=== PATIENT | female | born 1985 | race Two or more races ===

== ENCOUNTER 2024-11-21 08:20 | Inpatient (IN) | payer MEDICAID, OTHER ==
[~2024-11-21] VITALS: Ht 162.6 cm; Wt 80.6 kg
[2024-11-21] MEDS: SODIUM CHLORIDE 0.9% 1,000 ML IV ONE (08:45)
[2024-11-21 09:12] LABS: Hemoglobin 7.7 g/dL (12.2-16.2); Nucleated Red Blood Cells % 0.1 %
[2024-11-21 09:14] LABS: Hematocrit 25.5 % (36.0-46.0); Mean Corpuscular Hemoglobin 19.2 pg (28.0-32.0); Mean Corpuscular Volume 63.5 fL (80.0-100.0)
[2024-11-21 09:23] LABS: Albumin 4.5 g/dL (3.2-4.8); Anion Gap 9 (5-15); BUN/Creatinine Ratio 9.4 (10.0-20.0); Bilirubin, Total 0.6 mg/dL (0.2-1.0); Carbon Dioxide 28 mmol/L (20-31); Chloride 106 mmol/L (98-107); Sodium 143 mmol/L (136-145); Total Protein 7.1 g/dL (5.7-8.2)
[2024-11-21 09:24] LABS: Alanine Aminotransferase 75 U/L (7-40); Alkaline Phosphatase 272 U/L (46-116); Blood Urea Nitrogen 6 mg/dL (9-23); Calcium 8.6 mg/dL (8.7-10.4); Glucose 131 mg/dL (74-106); Lipase 80 U/L (12-53); Potassium 3.3 mmol/L (3.5-5.1)
--- NOTE | 2024-11-21 09:32 | ED.PDOC ---
GI ASSESSMENT HPI Comments . Sona Diallo is a 39-year-old female, with past medical history of DM2, hypertension, CVA (2022). The patient came to the ED with chief complain of 3 days of diarrhea, >#6 per day, liquid, small amount, no foul odor, blood or mucus; associated with abdominal pain, 6/10, localized in epigastric area, cramp-like, no irradiates, also nausea and vomit # 3 of gastric content, no blood. The patient reports her son has similar symptoms at home. Today, the watery diarrhea and vomit worsen, this prompted her visit to the ED. The patient denies blood in stools, fever, chills, eating food out of regular diet, recent travels or other. Attestation note: Dr. Greene: I was the supervising attending for this ED encounter. Please see the resident's notes. I was available for questions and consultations. MDM: MDM: patient presented with the above HPI. GI symptoms/abdominal pain/nausea and vomiting diarrhea------workup was initiated. patient was found with the above mentioned diagnosis. the following medications were ordered: please refer to order lists of meds and tests obtained by myself Dr. Greene. Patient ED course and VS have been stabilized. Patient has been reassessed in the ED and remained in a stable condition. . Patient has been observed in the ED adequate length of time to insure improvem ent/stability. Escalation of care considered: Consideration of escalation to observation or admission Patient was given GI cocktail, Zofran, fluids, The medicine team admitted the patient. Patient decided to leave against medical advice. All the reports of any imaging studies that were ordered by myself were reviewed by myself. Chief Complaint: Diarrhea Time Seen by MD: 08:27 Reviewed Notes: Nurses Notes, Medications, Allergies Allergies: Coded Allergies: NO KNOWN ALLERGIES (Unverified , 11/21/24) Home Meds Reported Medications Ferrous Sulfate (FERROUS SULFATE) 324 Mg Tab, 1 TAB PO DAILY 11/21/24 Cholecalciferol (VITAMIN D3) 5,000 Unit Cap, 1 CAP PO DAILY 11/21/24 Levetiracetam (Levetiracetam) 750 Mg Tab, 1 TAB PO BID 11/21/24 Losartan Potassium (Losartan Potassium) 25 Mg Tab, 1 TAB PO DAILY 11/21/24 Information Source: Patient Mode of Arrival: Ambulatory Timing: Days Duration: Since onset Quality: Cramping Vomitus: Food Particles Stool: Watery Severity: Mild Recent: Contact Exposure (Her son has similar symptoms at home. ) Pain Location: Diffuse Associated sign and symptoms: Nausea, Vomiting Past Medical History PAST MEDICAL HISTORY: DM, HTN Constitutional: denies: chills, diaphoresis, fatigue, fever, malaise, sweats, weakness, others EENTM: denies: blurred vision, double vision, ear bleeding, ear discharge, ear drainage, ear pain, ear ringing, eye pain, eye redness, hearing loss, mouth pa in, mouth swelling, nasal discharge, nose bleeding, nose congestion, nose pain, photophobia, tearing, throat pain, throat swelling, voice changes, others Respiratory: denies: cough, hemoptysis, orthopnea, SOB at rest, shortness of breath, SOB with excertion, stridor, wheezing, others Cardiovascular: denies: chest pain, dizzy spells, diaphoresis, Dyspnea on exertion, edema, irregular heart beat, left arm pain, lightheadedness, palpitations, PND, syncope, others Gastrointestinal: reports: abdominal pain, diarrhea, nausea, vomiting; denies: abdomen distended, blood streaked bowels, constipated, dysphagia, difficulty swallowing, hematemesis, melena, poor appetite, poor fluid intake, rectal bleeding, rectal pain, others Genitourinary: denies: abnormal vagina bleeding, burning, dyspareunia, dysuria, flank pain, frequency, hematuria, incontinence, pain, , vagina discharge, urgency, others Neurological: denies: dizziness, fainting, headache, left sided numbness, left sided weakness, numbness, paresthesia, pre-existing deficit, right sided numbness, right sided weakness, seizure, speech problems, tingling, tremors, weakness, others Musculoskeletal: denies: back pain, gout, joint pain, joint swelling, muscle pain, muscle stiffness, neck pain, others Integumetry: denies: bruises, change in color, change in hair/nails, dryness, laceration, lesions, lumps, rash, wounds, others Allergic/Immunocompromised: denies: Difficulty Healing, Frequent Infections, Hives, Itching, others Hematologic/Lymphatic: denies: anemia, blood clots, easy bleeding, easy bruising, swollen glands, others Endocrine: denies: excessive hunger, excessive sweating, excessive thirst, excessive urination, flushing, intolerance to cold, intolerance to heat, unexplained weight gain, unexplained weight loss, others Psychiatric: denies: anxiety, bipolar disorder, depression, hopeless, panic disorder, schizophrenia, sleepless, suicidal, others Physical Exam General Appearance: No Apparent Distress, Normal HEENT: Normal ENT Inspection, Pharynx Normal, TMs Normal Neck: Full Range of Motion, Non-Tender, Normal, Normal Inspection Respiratory: Chest Non-Tender, Lungs Clear, No Accessory Muscle Use, No Respiratory Distress, Normal Breath Sounds Cardiovascular: No Edema, No JVD, No Murmur, No Gallop, Normal Peripheral Pulses, Regular Rate/Rhythm Breast Exam: Deferred Gastrointestinal: Epigastric, No Organomegaly, Soft, Tenderness (epigastric tenderness to deep palpation), Other (bowel sounds present and active. ) Genitalia: Deferred Pelvic: Deferred Rectal: Deferred Extremities: No calf tenderness, Normal capillary refill, Normal inspection, Normal range of motion, Non-tender, No pedal edema Musculoskeletal : Apperance: Normal Neurologic: Alert, casey saw operator II-XII nml as Tested, No Motor Deficits, Normal Affect, Normal Mood, No Sensory Deficits Cerebellar Function: Normal Reflexes: Normal Skin: Dry, Normal Color, Warm Lymphatic: No Adenopathy Was a procedure done? Was a procedure done?: No GI differential Dx Differential Diagnosis: Cholecystitis, Gastritis/PUD, Gastroenteritis, Inflammatory BD, Ischemic Bowel, Pancreatitis, Dehydration, Food Poisoning, , Bacterial, Parasitic, Viral, Ischemic Bowel, Other (DDX include Diverticulitis, colitis, gastroenteritis, acute abdomen, SBO, enteritis, constipation, volvulus, appendicitis, Gallbladder disease, choledocolithiasis, ascending cholangitis, pancreatitis, intraAbdominal mass/neoplasm, hepatitis, UTI, pylonephritis, kidney stone, aneurysm, dissection, Inflammatory bowel disease, gastroparesis, ischemic bowel,,,,,,ovarian torsion, ovarian cyst/mass, tubo-ovarian abscess, , ectopic , PID, STD.) X-Ray, Labs, Meds, VS Vital Signs Date Time Temp Pulse Resp B/P (MAP) Pulse Ox O2 Delivery O2 Flow Rate FiO2 11/21/24 12:24 97.8 57 16 140/83 (102) 100 97.8 11/21/24 09:52 97.8 62 16 151/85 (107) 100 97.8 11/21/24 08:21 98.3 60 18 150/97 100 98.3 Lab Test 11/21/24 14:06 11/21/24 09:00 11/21/24 08:53 Range/Units Hemoglobin 7.7 L 7.7 L 12.2-16.2 g/dL Hematocrit 26.1 L 25.5 L 36.0-46.0 % Reticulocyte Count (auto) 1.14 0.5-1.5 % Urine Color Yellow Yellow Urine Clarity Turbid H Clear Urine pH 6.0 5.0-9.0 Urine Specific [place] 1.021 1.001-1.035 Urine Protein Trace H Negative Urine Ketones Negative Negative Urine Blood Negative Negative /uL Urine Nitrite Negative Negative Urine Bilirubin Negative Negative Urine Urobilinogen 4 H Negative mg/dL Urine Leukocyte Esterase 2+ Negative /uL Urine RBC 2 0 - 4 /hpf Urine Microscopic WBC 6 H 0-5 /HPF Urine Squamous Epithelial Cells Few <5 /hpf Urine Bacteria None seen None Seen /hpf Urine Mucus Few None Seen Urine Glucose Normal Normal mg/dL Urine Test Negative Negative White Blood Count 4.3 L 4.4-10.8 10^3/uL Red Blood Count 4.01 4.0-5.20 10^6/uL Mean Corpuscular Volume 63.5 L 80.0-100.0 fL Mean Corpuscular Hemoglobin 19.2 L 28.0-32.0 pg Mean Corpuscular Hemoglobin Concent 30.3 L 32.0-36.0 g/dL Red Cell Distribution Width 16.9 H 11.8-14.3 % Platelet Count 236 140-450 10^3/uL Mean Platelet Volume 9.4 6.9-10.8 fL Neutrophils (%) (Auto) 59.2 37.0-80.0 % Lymphocytes (%) (Auto) 24.9 10.0-50.0 % Monocytes (%) (Auto) 13.9 H 0.0-12.0 % Eosinophils (%) (Auto) 1.4 0.0-7.0 % Basophils (%) (Auto) 0.6 0.0-2.0 % Neutrophils # (Auto) 2.5 1.6-8.6 10 ^3/uL Lymphocytes # (Auto) 1.1 0.4-5.4 10 ^3/uL Monocytes # (Auto) 0.6 0-1.3 10 ^3/uL Eosinophils # (Auto) 0.1 0-0.8 10 ^3/uL Basophils # (Auto) 0 0-0.2 10 ^3/uL Nucleated Red Blood Cells 0.1 % Platelet Estimate Adequate Hypochromasia (manual) Marked Microcytosis Marked Sodium Level 143 136-145 mmol/L Potassium Level 3.3 L 3.5-5.1 mmol/L Chloride Level 106 98-107 mmol/L Carbon Dioxide Level 28 20-31 mmol/L Anion Gap 9 5-15 Blood Urea Nitrogen 6 L 9-23 mg/dL Creatinine 0.64 0.550-1.02 mg/dL Glomerular Filtration Rate Calc 115 >90 mL/min BUN/Creatinine Ratio 9.4 L 10.0-20.0 Serum Glucose 131 H 74-106 mg/dL Hemoglobin A1c 6.2 H <5.7 % A1C Lactic Acid Level 0.9 0.4-2.0 mmol/L Calcium Level 8.6 L 8.7-10.4 mg/dL Iron Level 18 L 50-170 ug/dL Total Iron Binding Capacity 419 250-425 ug/dL Percent Iron Saturation 4.3 L 15-50 % Total Bilirubin 0.6 0.2-1.0 mg/dL Aspartate Amino Transferase (AST) 117 H 13-40 U/L Alanine Aminotransferase (ALT) 75 H 7-40 U/L Alkaline Phosphatase 272 H 46-116 U/L Troponin I High Sensitivity 3 L </=34 ng/L Total Protein 7.1 5.7-8.2 g/dL Albumin 4.5 3.2-4.8 g/dL Lipase 80 H 12-53 U/L Vitamin D 25-Hydroxy 35.0 30.0-100 ng/mL Folic Acid 24.82 >5.38 ng/mL Current Medications Medications (Trade) Dose Ordered Sig/Slim Route Start Time Stop Time Status Last Admin Sodium Chloride 1,000 ml @ 1,000 mls/hr Q1H ONCE IV 11/21/24 08:45 11/21/24 09:44 DC 11/21/24 08:45 Ondansetron HCl (Zofran) 8 mg ONCE ONCE IV 11/21/24 08:45 11/21/24 08:46 DC 11/21/24 09:46 Sucralfate (Carafate Tab) 1 gm ONCE ONCE PO 11/21/24 09:00 11/21/24 09:23 DC 11/21/24 09:46 Pantoprazole Sodium (Protonix Tablet) 40 mg ONCE ONCE PO 11/21/24 09:00 11/21/24 09:23 DC 11/21/24 09:46 Lidocaine HCl (Xylocaine 2% Viscous) 10 ml ONCE ONCE PO 11/21/24 09:00 11/21/24 09:23 DC 11/21/24 09:46 Ceftriaxone Sodium 50 ml @ 100 mls/hr ONCE ONCE IV 11/21/24 12:15 11/21/24 12:44 DC 11/21/24 12:26 [place] [id number] Ph: [phone] DIAGNOSTIC IMAGING Diagnostic Imaging Report : [id number] Signed PATIENT: SONA DIALLOACCT: [id number] UNIT: [id number] : 1985 LOC: ER ROOM / BED: / AGE / SEX: 39 / F ADM STATUS: REG ER SERVICE 1208 ORDERING PHYSICIAN: JASMEET LOWE RESIDENT PROCEDURE(s): ABDL - ABDOMEN LIMITED REASON: Abdominal pain, RUQ ORDER NUMBER(s): [id number], ACCESSION NUMBER(s): [id number] Procedure: US ABDOMEN LIMITED Study Date and Requested Time: 11/21/2024 12:35 PM History: Abdominal pain, RUQ Comparison: None Technique: Multiple high resolution montilla-scale images obtained of the right upper quadrant of the abdomen with color Doppler for evaluation of blood flow and vascularity as indicated. Findings: Liver normal in size, measuring 13.8 cm in length, with homogenous echotexture and normal contours. No evidence of focal hepatic lesions, intrahepatic or extrahepatic ductal dilatation. Common bile duct measures 0.9 cm in diameter. Cholelithiasis with mild gallbladder wall thickening of the fundus up to 0.5 cm. No gallbladder polyps or sludge. No pericholecystic free fluid. Negative sonographic Bravo's sign. Pancreas is obscured by bowel gas. Right kidney measures 9.7 cm in length, with normal contours, echotexture, and cortical thickness. No evidence of hydronephrosis, calculi, cystic or solid renal lesions. Partially visualized inferior vena cava unremarkable. Impression: Cholelithiasis with Nonspecific gallbladder wall thickening over the fundus. No pericholecystic free fluid. Negative sonographic bravo's sign. Findings are not definitive for acute cholecystitis. If there is concern for acute cholecystitis, hepatobiliary scan may be considered for further evaluation. Gallbladder fundal wall thickening may be from adenomyomatosis with other etiologies not excluded. Dilatation of the common bile duct up to 0.9 cm. MRCP should be considered for further evaluation. ATED BY: ALAINA SOTO DO DICTATED DATE/TIME: 11/21/24 1301 SIGNED BY: ALAINA SOTO DO SIGNED DATE/TIME: 11/21/24 1301 CC: [place] [id number] Ph: [phone] DIAGNOSTIC IMAGING Diagnostic Imaging Report : [id number] Signed PATIENT: SONA DIALLOACCT: [id number] UNIT: [id number] : 1985 LOC: ER ROOM / BED: / AGE / SEX: 39 / F ADM STATUS: REG ER SERVICE 0952 ORDERING PHYSICIAN: AARON GREENE DO PROCEDURE(s): ABPL - CT AB PEL WO CON-NO ORAL OR IV REASON: abd pain n/v/d ORDER NUMBER(s): [id number], ACCESSION NUMBER(s): [id number] CLINICAL INFORMATION: Abdominal pain. Nausea, vomiting, diarrhea. TECHNIQUE: Axial CT images of the abdomen and pelvis were obtained without IV contrast. Coronal and sagittal reformatted images were obtained, reviewed, and stored. Evaluation of the parenchymal organs is limited without IV contrast. Evaluation of the bowel and mesentery is limited without oral contrast. All CT scans at this medical facility are performed using dose modulation techniques as appropriate to a performed exam including the following: Automated exposure c ontrol was utilized; adjustment of the MA and/or KV according to patient size; and use of iterative reconstruction technique. CTDIvol = 20.28 mGy DLP = 1126.64 mGy-cm COMPARISON: None FINDINGS: Examination is limited due to motion artifact and beam hardening artifact from the patient being scanned with arms at sides. Lung bases: Atelectasis in the lung bases. Liver: Grossly unremarkable given the limitations of the exam. Biliary: There is calcification of the wall of the gallbladder near the fundus. Gallbladder wall appears thickened. Common bile duct measures 1 cm in diameter, mildly dilated. Spleen: Unremarkable. Pancreas: Grossly unremarkable in its noncontrast enhanced appearance. Adrenal glands: Unremarkable. No mass. Kidneys: No hydronephrosis. No renal or ureteral calculi. Aorta/Vascular: No aneurysm or significant calcification. Lymph nodes: No lymphadenopathy visualized given the limitations of the examination. Bowel/mesentery: Nonspecific nondilated fluid-filled small bowel loops. No small bowel obstruction. Appendix is not visualized. Pelvic organs: Grossly unremarkable. Bladder: Mild circumferential thickening of the bladder wall. Abdominal wall: No mass or hernia. Bones: No evidence of acute fracture. Sclerotic lesions in the right posterior iliac bone and left sacral ala, possibly bone islands. IMPRESSION: 1. Limited examination for the reasons described above. 2. Wall thickening and calcification of the gallbladder wall near the fundus. Recommend ultrasound to further characterize. 3. Mild dilation of the common bile duct. Correlate with clinical findings. If clinically indicated, MRCP could be obtained. 4. Circumferential thickening of the bladder wall is nonspecific. Correlate clinically to exclude cystitis. 5. Nonspecific nondilated fluid-filled small bowel loops. Findings may be seen with ileus or enteritis in the appropriate clinical setting. No small bowel obstruction. ATED BY: ISAC CHEN DO DICTATED DATE/TIME: 11/21/241111 SIGNED BY: ISAC CHEN DO SIGNED DATE/TIME: 11/21/241111 CC: X-Ray, Labs, Meds, VS Comment 9:30 The patient has been re-evaluated. VS are stable CBC: WBC 4.3x10e3/uL Hb:7.7mg/dl CMP: K: 3.3, AST: 117, ALT: 75, Lipase 80, Lactic acid: 0.9 CT abd/Pelv 1. Limited examination for the reasons described above. 2. Wall thickening and calcification of the gallbladder wall near the fundus. Recommend ultrasound to further characterize. 3. Mild dilation of the common bile duct. Correlate with clinical findings. If clinically indicated, MRCP could be obtained. 4. Circumferential thickening of the bladder wall is nonspecific. Correlate clinically to exclude cystitis. 5. Nonspecific nondilated fluid-filled small bowel loops. Findings may be seen with ileus or enteritis in the appropriate clinical setting. No small bowel obstruction. 12:30 Abdomen US was recommended: The patient reports feeling better. US Abd/eplv reports: Cholelithiasis with Nonspecific gallbladder wall thickening over the fundus. No pericholecystic free fluid. Negative sonographic bravo's sign. Findings are not definitive for acute cholecystitis. If there is concern for acute cholecystitis, hepatobiliary scan may be considered for further evaluation. Gallbladder fundal wall thickening may be from adenomyo matosis with other etiologies not excluded. The patient will be admitted for further assessment and management. 14:58 The patient reports feeling better and wants to go AMA. Patient was advised about her condition and the consequences of leaving AMA, the patient agrees to understood but still wants to go AMA. Recommendation were given on warning signs and when to return to the nearest ER. Dr. Greene has been informed. Time of 1ST Reevaluation: 09:30 Reevaluation 1ST: Unchanged Time of 2ND Reevaluation: 12:30 Reevaluation 2ND: Improved Time of 3RD Reevaluation: 14:58 Reevaluation 3RD: Improved Patient Education/Counseling: Diagnosis, Treatment, Prognosis, Need For Follow Up Family Education/Counseling: No Family Present SEPSIS Sepsis Screen Date sepsis recognized/suspect: Nov 21, 2024 Time Sepsis recognized/suspect: 824 Recent Procedure: No On Antibiotic Therapy: No Respiratory Rate >20: No Heart Rate >90: No Temp<36 C (96.8 F) or >38.3 C: No SBP <90 or MAP <65 mmHG: No New Acute Mental Status Change: No Is the patient on CPAP, BIPAP,: No Physician Orders Geospatial Engineer (11/21/24 ) Electrocardigram (11/21/24 08:41) Ova & Parasite Exam (11/21/24 08:41) Stool Bacterial Culture (11/21/24 08:41) Stool Wbc (11/21/24 08:41) Ct Ab Pel Wo Con-No Oral Or Iv (11/21/24 09:52) Abdomen Limited (11/21/24 12:08) Vital Signs Date Time Temp Pulse Resp B/P (MAP) Pulse Ox O2 Delivery O2 Flow Rate FiO2 11/21/24 12:24 97.8 57 16 140/83 (102) 100 97.8 11/21/24 09:52 97.8 62 16 151/85 (107) 100 97.8 11/21/24 08:21 98.3 60 18 150/97 100 98.3 Laboratory Tests Test 11/21/24 08:53 Lactic Acid Level 0.9 mmol/L (0.4-2.0) White Blood Count 4.3 10^3/uL (4.4-10.8) L Medications Medications Dose Ordered Sig/Slim Route Start Time Stop Time Status Last Admin Dose Admin Ceftriaxone Sodium 50 ml @ 100 mls/hr ONCE ONCE IV 11/21/24 12:15 11/21/24 12:44 DC 11/21/24 12:26 Lidocaine HCl 10 ml ONCE ONCE PO 11/21/24 09:00 11/21/24 09:23 DC 11/21/24 09:46 Ondansetron HCl 8 mg ONCE ONCE IV 11/21/24 08:45 11/21/24 08:46 DC 11/21/24 09:46 Pantoprazole Sodium 40 mg ONCE ONCE PO 11/21/24 09:00 11/21/24 09:23 DC 11/21/24 09:46 Sodium Chloride 1,000 ml @ 1,000 mls/hr Q1H ONCE IV 11/21/24 08:45 11/21/24 09:44 DC 11/21/24 08:45 Sucralfate 1 gm ONCE ONCE PO 11/21/24 09:00 11/21/24 09:23 DC 11/21/24 09:46 Departure 1 Departure Time of Disposition: 14:54 Impression: Primary Impression: Elevated LFTs Additional Impressions: UTI (urinary tract infection) Gallbladder disease Anemia Disposition: 07 LEFT AGAINST MEDICAL ADVICE Condition: Other Additional Instructions: You are leaving against medical advice. Please return to the emergency department if you change your mind. Please seek medical attention KITTY. this is your radiological report for follow up: [address] [address] Ph: [phone] DIAGNOSTIC IMAGING Diagnostic Imaging Report : [id number] Signed PATIENT: SONA DIALLO ACCT: [id number] UNIT: [id number] : 1985 LOC: ER ROOM / BED: / AGE / SEX: 39 / F ADM STATUS: REG ER SERVICE 1208 ORDERING PHYSICIAN: JASMEET LOWE RESIDENT PROCEDURE(s): ABDL - ABDOMEN LIMITED REASON: Abdominal pain, RUQ ORDER NUMBER(s): [id number], ACCESSION NUMBER(s): [id number] Procedure: US ABDOMEN LIMITED Study Date and Requested Time: 11/21/2024 12:35 PM History: Abdominal pain, RUQ Comparison: None Technique: Multiple high resolution montilla-scale images obtained of the right upper quadrant of the abdomen with color Doppler for evaluation of blood flow and vascularity as indicated. Findings: Liver normal in size, measuring 13.8 cm in length, with homogenous echotexture and normal contours. No evidence of focal hepatic lesions, intrahepatic or extrahepatic ductal dilatation. Common bile duct measures 0.9 cm in diameter. Cholelithiasis with mild gallbladder wall thickening of the fundus up to 0.5 cm. No gallbladder polyps or sludge. No pericholecystic free fluid. Negative sonographic Bravo's sign. Pancreas is obscured by bowel gas. Right kidney measures 9.7 cm in length, with normal contours, echotexture, and cortical thickness. No evidence of hydronephrosis, calculi, cystic or solid renal lesions. Partially visualized inferior vena cava unremarkable. Impression: Cholelithiasis with Nonspecific gallbladder wall thickening over the fundus. No pericholecystic free fluid. Negative sonographic bravo's sign. Findings are not definitive for acute cholecystitis. If there is concern for acute cholecystitis, hepatobiliary scan may be considered for further evaluation. Gallbladder fundal wall thickening may be from adenomyomatosis with other leno ologies not excluded. Dilatation of the common bile duct up to 0.9 cm. MRCP should be considered for further evaluation. ATED BY: ALAINA SOTO DO DICTATED DATE/TIME: 11/21/24 1301 SIGNED BY: ALAINA SOTO DO SIGNED DATE/TIME: 11/21/24 1301 CC: [place] [address] Ph: [phone] DIAGNOSTIC IMAGING Diagnostic Imaging Report : [id number] Signed PATIENT: SONA DIALLO ACCT: [id number] UNIT: [id number] : 1985 LOC: ER ROOM / BED: / AGE / SEX: 39 / F ADM STATUS: REG ER SERVICE 0952 ORDERING PHYSICIAN: AARON GREENE DO PROCEDURE(s): ABPL - CT AB PEL WO CON-NO ORAL OR IV REASON: abd pain n/v/d ORDER NUMBER(s): [id number], ACCESSION NUMBER(s): [id number] CLINICAL INFORMATION: Abdominal pain. Nausea, vomiting, diarrhea. TECHNIQUE: Axial CT images of the abdomen and pelvis were obtained without IV contrast. Coronal and sagittal reformatted images were obtained, reviewed, and stored. Evaluation of the parenchymal organs is limited without IV contrast. Evaluation of the bowel and mesentery is limited without oral contrast. All CT scans at this medical facility are performed using dose modulation techniques as appropriate to a performed exam including the following: Automated exposure control was utilized; adjustment of the MA and/or KV according to patient size; and use of iterative reconstruction technique. CTDIvol = 20.28 mGy DLP = 1126.64 mGy-cm COMPARISON: None FINDINGS: Examination is limited due to motion artifact and beam hardening artifact from the patient being scanned with arms at sides. Lung bases: Atelectasis in the lung bases. Liver: Grossly unremarkable given the limitations of the exam. Biliary: There is calcification of the wall of the gallbladder near the fundus. Gallbladder wall appears thickened. Common bile duct measures 1 cm in diameter, mildly dilated. Spleen: Unremarkable. Pancreas: Grossly unremarkable in its noncontrast enhanced appearance. Adrenal glands: Unremarkable. No mass. Kidneys: No hydronephrosis. No renal or ureteral calculi. Aorta/Vascular: No aneurysm or significant calcification. Lymph nodes: No lymphadenopathy visualized given the limitations of the examination. Bowel/mesentery: Nonspecific nondilated fluid-filled small bowel loops. No small bowel obstruction. Appendix is not visualized. Pelvic organs: Grossly unremarkable. Bladder: Mild circumferential thickening of the bladder wall. Abdominal wall: No mass or hernia. Bones: No evidence of acute fracture. Sclerotic lesions in the right posterior iliac bone and left sacral ala, possibly bone islands. IMPRESSION: 1. Limited examination for the reasons described above. 2. Wall thickening and calcification of the gallbladder wall near the fundus. Recommend ultrasound to further characterize. 3. Mild dilation of the common bile duct. Correlate with clinical findings. If clinically indicated, MRCP could be obtained. 4. Circumferential thickening of the bladder wall is nonspecific. Correlate clinically to exclude cystitis. 5. Nonspecific nondilated fluid-filled small bowel loops. Findings may be seen with ileus or enteritis in the appropriate clinical setting. No small bowel obstruction. ATED BY: ISAC CHEN DO DICTATED DATE/TIME: 11/21/24 1112 SIGNED BY: ISAC CHEN DO SIGNED DATE/TIME: 11/21/24 1112 CC: Discharged With: Self Comments Goals of care discussed with the patient > 35 min. Discussed plan of care with Dr. Greene Code status: Full code PCP: Dr. Kaitlynn Hubbard Plan discussed with: Patient, the patient denies the admission plan and wants to go AMA. The patient reports she has an appointment on 11/24/[address] Kaitlynn Hubbard (PCP) and she will follow up with her. Patient was advised about her condition and the consequences of leaving AMA, the patient agrees to understood but still wants to go AMA. Recommendation were given on warning signs and when to return to the nearest ER. Dr. Greene has been informed. Critical Care Note Critical Care Time?: No Stability Stability form required: No Heart Score Heart Score: Heart Score Response (Comments) Value History Slightly Suspicious 0 EKG Normal 0 Age <45 0 Risk Factors 1 or 2 risk factors 1 Troponin Normal limit 0 Total 1 I personally scribed for JASMEET LOWE ([email or web address]) on 11/21/24 at 14:54. Electronically submitted by Tommy Real ([email or web address]). I personally scribed for AARON GREENE DO ([email or web address]) on 11/21/24 at 14:57. Electronically submitted by Tommy Real ([email or web address]). JASMEET LOWE Nov 21, 2024 09:32 AARON GREENE DO Nov 21, 2024 14:56
[2024-11-21] MEDS: ONDANSETRON HCL 4 MG/2 ML VIAL IV ONE (09:46)
[2024-11-21] MEDS: LIDOCAINE VISCOUS 2% 15ML UD PO ONE (09:46)
[2024-11-21] MEDS: PANTOPRAZOLE 40 MG TAB PO ONE (09:46)
[2024-11-21] MEDS: SUCRALFATE 1 GM TAB PO ONE (09:46)
[2024-11-21 09:47] LABS: Urine Protein, UAD TRACE (Negative)
--- NOTE | 2024-11-21 11:14 | DVH ---
CLINICAL INFORMATION: Abdominal pain. Nausea, vomiting, diarrhea. TECHNIQUE: Axial CT images of the abdomen and pelvis were obtained without IV contrast. Coronal and s agittal reformatted images were obtained, reviewed, and stored. Evaluation of the parenchymal organs is limited without IV contrast. Evaluation of the bowel and mesentery is limited without oral contras t. All CT scans at this medical facility are performed using dose modulation techniques as appropriat e to a performed exam including the following: Automated exposure control was utilized; adjustment of the MA and/or KV according to patient size; and use of iterative reconstruction technique. CTDIvol = 20.28 mGy DLP = 1126.64 mGy-cm COMPARISON: None FINDINGS: Examination is limited due to motion artifact and beam hardening artifact from the patient being scanned with arms at sides. Lung bases: Atelectasis in the lung bases. Liver: Grossly unremarkable given the limitations of the exam. Biliary: There is calcification of the wall of the gallbladder near the fundus. Gallbladder wall appe ars thickened. Common bile duct measures 1 cm in diameter, mildly dilated. Spleen: Unremarkable. Pancreas: Grossly unremarkable in its noncontrast enhanced appearance. Adrenal glands: Unremarkable. No mass. Kidneys: No hydronephrosis. No renal or ureteral calculi. Aorta/Vascular: No aneurysm or significant calcification. Lymph nodes: No lymphadenopathy visualized given the limitations of the examination. Bowel/mesentery: Nonspecific nondilated fluid-filled small bowel loops. No small bowel obstruction. A ppendix is not visualized. Pelvic organs: Grossly unremarkable. Bladder: Mild circumferential thickening of the bladder wall. Abdominal wall: No mass or hernia. Bones: No evidence of acute fracture. Sclerotic lesions in the right posterior iliac bone and left s acral ala, possibly bone islands. IMPRESSION: 1. Limited examination for the reasons described above. 2. Wall thickening and calcification of the gallbladder wall near the fundus. Recommend ultrasound to further characterize. 3. Mild dilation of the common bile duct. Correlate with clinical findings. If clinically indicated, MRCP could be obtained. 4. Circumferential thickening of the bladder wall is nonspecific. Correlate clinically to exclude cy stitis. 5. Nonspecific nondilated fluid-filled small bowel loops. Findings may be seen with ileus or enteriti s in the appropriate clinical setting. No small bowel obstruction.
[2024-11-21 12:24] VITALS: BP 140/83; PULSE 57; RESP 16; TEMP 97.8; O2SAT 100
--- NOTE | 2024-11-21 13:03 | DVH ---
Procedure: US ABDOMEN LIMITED Study Date and Requested Time: 11/21/2024 12:35 PM History: Abdominal pain, RUQ Comparison: None Technique: Multiple high resolution montilla-scale images obtained of the right upper quadrant of the abd omen with color Doppler for evaluation of blood flow and vascularity as indicated. Findings: Liver normal in size, measuring 13.8 cm in length, with homogenous echotexture and normal contours. N o evidence of focal hepatic lesions, intrahepatic or extrahepatic ductal dilatation. Common bile duct measures 0.9 cm in diameter. Cholelithiasis with mild gallbladder wall thickening of the fundus up to 0.5 cm. No gallbladder polyp s or sludge. No pericholecystic free fluid. Negative sonographic Bravo's sign. Pancreas is obscured by bowel gas. Right kidney measures 9.7 cm in length, with normal contours, echotexture, and cortical thickness. No evidence of hydronephrosis, calculi, cystic or solid renal lesions. Partially visualized inferior vena cava unremarkable. Impression: Cholelithiasis with Nonspecific gallbladder wall thickening over the fundus. No pericholecystic free fluid. Negative sonographic bravo's sign. Findings are not definitive for acute cholecystitis. If t here is concern for acute cholecystitis, hepatobiliary scan may be considered for further evaluation. Gallbladder fundal wall thickening may be from adenomyomatosis with other etiologies not excluded. Dilatation of the common bile duct up to 0.9 cm. MRCP should be considered for further evaluation.
[2024-11-21] MEDS ORDERED: FERR324T4 PO (14:11)
[2024-11-21] MEDS ORDERED: CHOL50007 PO (14:11)
[2024-11-21] MEDS ORDERED: LEVE750T3 PO (14:11)
[2024-11-21] MEDS ORDERED: LOS25T PO (14:11)
--- NOTE | 2024-11-21 14:13 | DVHHP2 ---
History of Present Illness Reason for Visit: Abdominal pain with diarrhea, nausea, and vomiting History of Present Illness Sona Diallo is a 39-year-old female with past medical history of diabetes and hypertension who presents to the ED with abdominal pain with nausea, vomiting, and diarrhea x3 days. Patient reports that her current pain is 6/10 cramp like and localized. She reports that the diarrhea and vomiting have worsened today. Patient reports that she can not stay in the hospital as she has take care of her young kids. She states that she has an appointment with her PCP on Sunday and will follow up with them. Patient was discussed risks and benefits of leaving against medical advice and understood. She still insists on leaving AMA. Cardiovascular: HTN Endocrine: Diabetes Lives: with Family Domestic Violence: Neg Review of Systems Gastrointestinal: Nausea, Vomiting, Abdominal Pain, Diarrhea Allergies: Coded Allergies: NO KNOWN ALLERGIES (Unverified , 11/21/24) Exam Vital Signs Vital Signs Date Time Temp Pulse Resp B/P (MAP) Pulse Ox O2 Delivery O2 Flow Rate FiO2 11/21/24 12:24 97.8 57 16 140/83 (102) 100 97.8 General Appearance: Alert, Oriented X3, Cooperative, No acute distress HEENT: Atraumatic, PERRLA, EOMI Respiratory: Normal air movement Cardiovascular: Normal S1, Normal S2 Extremities: Normal pulses Skin: No significant lesion Neuro: Normal gait, Normal speech, Strength at 5/5 X4 ext, Normal tone, Sensation intact Psych/Mental Status: Mental status NL, Mood NL Labs/Xrays Labs Test 11/21/24 09:00 11/21/24 08:53 Range/Units Urine Color Yellow Yellow Urine Clarity Turbid H Clear Urine pH 6.0 5.0-9.0 Urine Specific [place] 1.021 1.001-1.035 Urine Protein Trace H Negative Urine Ketones Negative Negative Urine Blood Negative Negative /uL Urine Nitrite Negative Negative Urine Bilirubin Negative Negative Urine Urobilinogen 4 H Negative mg/dL Urine Leukocyte Esterase 2+ Negative /uL Urine RBC 2 0 - 4 /hpf Urine Microscopic WBC 6 H 0-5 /HPF Urine Squamous Epithelial Cells Few <5 /hpf Urine Bacteria None seen None Seen /hpf Urine Mucus Few None Seen Urine Glucose Normal Normal mg/dL Urine Test Negative Negative White Blood Count 4.3 L 4.4-10.8 10^3/uL Red Blood Count 4.01 4.0-5.20 10^6/uL Hemoglobin 7.7 L 12.2-16.2 g/dL Hematocrit 25.5 L 36.0-46.0 % Mean Corpuscular Volume 63.5 L 80.0-100.0 fL Mean Corpuscular Hemoglobin 19.2 L 28.0-32.0 pg Mean Corpuscular Hemoglobin Concent 30.3 L 32.0-36.0 g/dL Red Cell Distribution Width 16.9 H 11.8-14.3 % Platelet Count 236 140-450 10^3/uL Mean Platelet Volume 9.4 6.9-10.8 fL Neutrophils (%) (Auto) 59.2 37.0-80.0 % Lymphocytes (%) (Auto) 24.9 10.0-50.0 % Monocytes (%) (Auto) 13.9 H 0.0-12.0 % Eosinophils (%) (Auto) 1.4 0.0-7.0 % Basophils (%) (Auto) 0.6 0.0-2.0 % Neutrophils # (Auto) 2.5 1.6-8.6 10 ^3/uL Lymphocytes # (Auto) 1.1 0.4-5.4 10 ^3/uL Monocytes # (Auto) 0.6 0-1.3 10 ^3/uL Eosinophils # (Auto) 0.1 0-0.8 10 ^3/uL Basophils # (Auto) 0 0-0.2 10 ^3/uL Nucleated Red Blood Cells 0.1 % Platelet Estimate Adequate Hypochromasia (manual) Marked Microcytosis Marked Sodium Level 143 136-145 mmol/L Potassium Level 3.3 L 3.5-5.1 mmol/L Chloride Level 106 98-107 mmol/L Carbon Dioxide Level 28 20-31 mmol/L Anion Gap 9 5-15 Blood Urea Nitrogen 6 L 9-23 mg/dL Creatinine 0.64 0.550-1.02 mg/dL Glomerular Filtration Rate Calc 115 >90 mL/min BUN/Creatinine Ratio 9.4 L 10.0-20.0 Serum Glucose 131 H 74-106 mg/dL Lactic Acid Level 0.9 0.4-2.0 mmol/L Calcium Level 8.6 L 8.7-10.4 mg/dL Total Bilirubin 0.6 0.2-1.0 mg/dL Aspartate Amino Transferase (AST) 117 H 13-40 U/L Alanine Aminotransferase (ALT) 75 H 7-40 U/L Alkaline Phosphatase 272 H 46-116 U/L Troponin I High Sensitivity 3 L </=34 ng/L Total Protein 7.1 5.7-8.2 g/dL Albumin 4.5 3.2-4.8 g/dL Lipase 80 H 12-53 U/L Procedure: US ABDOMEN LIMITED Study Date and Requested Time: 11/21/2024 12:35 PM History: Abdominal pain, RUQ Comparison: None Technique: Multiple high resolution montilla-scale images obtained of the right upper quadrant of the abdomen with color Doppler for evaluation of blood flow and vascularity as indicated. Findings: Liver normal in size, measuring 13.8 cm in length, with homogenous echotexture and normal contours. No evidence of focal hepatic lesions, intrahepatic or extrahepatic ductal dilatation. Common bile duct measures 0.9 cm in diameter. Cholelithiasis with mild gallbladder wall thickening of the fundus up to 0.5 cm. No gallbladder polyps or sludge. No pericholecystic free fluid. Negative sonographic Bravo's sign. Pancreas is obscured by bowel gas. Right kidney measures 9.7 cm in length, with normal contours, echotexture, and cortical thickness. No evidence of hydronephrosis, calculi, cystic or solid renal lesions. Partially visualized inferior vena cava unremarkable. Impression: Cholelithiasis with Nonspecific gallbladder wall thickening over the fundus. No pericholecystic free fluid. Negative sonographic bravo's sign. Findings are not definitive for acute cholecystitis. If there is concern for acute cholecystitis, hepatobiliary scan may be considered for further evaluation. Gallbladder fundal wall thickening may be from adenomyomatosis with other etiologies not excluded. Dilatation of the common bile duct up to 0.9 cm. MRCP should be considered for further evaluation. CLINICAL INFORMATION: Abdominal pain. Nausea, vomiting, diarrhea. TECHNIQUE: Axial CT images of the abdomen and pelvis were obtained without IV contrast. Coronal and sagittal reformatted images were obtained, reviewed, and stored. Evaluation of the parenchymal organs is limited without IV contrast. Evaluation of the bowel and mesentery is limited without oral contrast. All CT scans at this medical facility are performed using dose modulation techniques as appropriate to a performed exam including the following: Automated exposure control was utilized; adjustment of the MA and/or KV according to patient size; and use of iterative reconstruction technique. CTDIvol = 20.28 mGy DLP = 1126.64 mGy-cm COMPARISON: None FINDINGS: Examination is limited due to motion artifact and beam hardening artifact from the patient being scanned with arms at sides. Lung bases: Atelectasis in the lung bases. Liver: Grossly unremarkable given the limitations of the exam. Biliary: There is calcification of the wall of the gallbladder near the fundus. Gallbladder wall appears thickened. Common bile duct measures 1 cm in diameter, mildly dilated. Spleen: Unremarkable. Pancreas: Grossly unremarkable in its noncontrast enhanced appearance. Adrenal glands: Unremarkable. No mass. Kidneys: No hydronephrosis. No renal or ureteral calculi. Aorta/Vascular: No aneurysm or significant calcification. Lymph nodes: No lymphadenopathy visualized given the limitations of the examination. Bowel/mesentery: Nonspecific nondilated fluid-filled small bowel loops. No small bowel obstruction. Appendix is not visualized. Pelvic organs: Grossly unremarkable. Bladder: Mild circumferential thickening of the bladder wall. Abdominal wall: No mass or hernia. Bones: No evidence of acute fracture. Sclerotic lesions in the right posterior iliac bone and left sacral ala, possibly bone islands. IMPRESSION: 1. Limited examination for the reasons described above. 2. Wall thickening and calcification of the gallbladder wall near the fundus. Recommend ultrasound to further characterize. 3. Mild dilation of the common bile duct. Correlate with clinical findings. If clinically indicated, MRCP could be obtained. 4. Circumferential thickening of the bladder wall is nonspecific. Correlate clinically to exclude cystitis. 5. Nonspecific nondilated fluid-filled small bowel loops. Findings may be seen with ileus or enteritis in the appropriate clinical setting. No small bowel obstruction. SEPSIS Sepsis Screen Date sepsis recognized/suspect: Nov 21, 2024 Time Sepsis recognized/suspect: 824 Recent Procedure: No On Antibiotic Therapy: No Respiratory Rate >20: No Heart Rate >90: No Temp<36 C (96.8 F) or >38.3 C: No SBP <90 or MAP <65 mmHG: No New Acute Mental Status Change: No Is the patient on CPAP, BIPAP,: No Physician Orders Aml Analyst (11/21/24 ) Electrocardigram (11/21/24 08:41) Ova & Parasite Exam (11/21/24 08:41) Stool Bacterial Culture (11/21/24 08:41) Stool Wbc (11/21/24 08:41) Ct Ab Pel Wo Con-No Oral Or Iv (11/21/24 09:52) Abdomen Limited (11/21/24 12:08) Hemoglobin & Hematocrit (11/21/24 13:56) Vital Signs Date Time Temp Pulse Resp B/P (MAP) Pulse Ox O2 Delivery O2 Flow Rate FiO2 11/21/24 12:24 97.8 57 16 140/83 (102) 100 97.8 11/21/24 09:52 97.8 62 16 151/85 (107) 100 97.8 11/21/24 08:21 98.3 60 18 150/97 100 98.3 Laboratory Tests Test 11/21/24 08:53 Lactic Acid Level 0.9 mmol/L (0.4-2.0) White Blood Count 4.3 10^3/uL (4.4-10.8) L Medications Medications Dose Ordered Sig/Slim Route Start Time Stop Time Status Last Admin Dose Admin Ceftriaxone Sodium 50 ml @ 100 mls/hr ONCE ONCE IV 11/21/24 12:15 11/21/24 12:44 DC 11/21/24 12:26 100 MLS/HR Lidocaine HCl 10 ml ONCE ONCE PO 11/21/24 09:00 11/21/24 09:23 DC 11/21/24 09:46 10 ML Ondansetron HCl 8 mg ONCE ONCE IV 11/21/24 08:45 11/21/24 08:46 DC 11/21/24 09:46 8 MG Pantoprazole Sodium 40 mg ONCE ONCE PO 11/21/24 09:00 11/21/24 09:23 DC 11/21/24 09:46 40 MG Sodium Chloride 1,000 ml @ 1,000 mls/hr Q1H ONCE IV 11/21/24 08:45 11/21/24 09:44 DC 11/21/24 08:45 1,000 MLS/HR Sucralfate 1 gm ONCE ONCE PO 11/21/24 09:00 11/21/24 09:23 DC 11/21/24 09:46 1 GM Assessment/Plan Assessment/Plan Assessment Intractable abdominal pain likely due to enteritis UTI Microcytic anemia Hypokalemia Transaminitis Wall thickening and calcification of the gallbladder wall near the fundus Mild dilation of the common bile duct rule out choledocholithiasis History of diabetes History of hypertension Plan Admit to med surge Hemoglobin A1c ISS and Accu-Cheks Antiemetics Pain management Type and screen Replete lytes IV fluids IV antibiotics-ceftriaxone Abdominal ultrasound MRCP Diet Home medications reconciled DVT prophylaxis-not indicated patient ambulating PUD prophylaxis-PPIs Discussed plan of care with patient and nurse [id number] Preventive counseling healthy eating habits, physical activity, and regular checkups Patient leaving AMA with risks and benefits discussed Plan discussed with: Patient Date of Service: Nov 21, 2024 Billing Provider: KELLEN ROUSE Common Visit Codes: 34521-[id number] INP/OBS CARE (HIGH) Secondary Visit Codes: [id number] COUNSELING IND KELLEN ROUSE Nov 21, 2024 14:13
[2024-11-21] MEDS ORDERED: DEXTROSE (50%) 50ML SYRG IV PRN (14:15)
[2024-11-21] MEDS ORDERED: ONDANSETRON HCL 4 MG/2 ML VIAL IV PRN (14:15)
[2024-11-21] MEDS ORDERED: POTASSIUM CHL 20 Meq TABLET PO ONE (14:15)
[2024-11-21] MEDS: SODIUM CHLORIDE 0.9% 1,000 ML IV SCH (14:15)
[2024-11-21] MEDS ORDERED: HYDROcodone-ACET 5/325MG TAB PO PRN (14:15)
[2024-11-21] MEDS ORDERED: ACETAMINOPHEN 325 MG TAB PO PRN (14:15)
[2024-11-21 14:19] LABS: Hematocrit 26.1 % (36.0-46.0); Hemoglobin 7.7 g/dL (12.2-16.2)
[2024-11-21 14:30] LABS: Total Iron Binding Capacity 419.0 ug/dL (250-425)
[2024-11-21] MEDS ORDERED: MORPHINE SULFATE 4 MG/ML SYR/VIAL IV PRN (14:30)
[2024-11-21 14:31] LABS: Iron 18.0 ug/dL (50-170)
[2024-11-21] MEDS ORDERED: ACCU-CHEK COMFORT CURVE STRIP VI SCH (18:00)
[2024-11-21] MEDS ORDERED: InsuLIN REG 1unit/0.01ml Soln (100units/ml) SC SCH (18:00)
[2024-11-21] MEDS ORDERED: levETIRAcetam 500 MG TAB PO SCH (22:00)
[2024-11-22] MEDS ORDERED: FERROUS SULFATE 325mg EC TAB PO SCH (10:00)
[2024-11-22] MEDS ORDERED: LOSARTAN POTASSIUM 25 MG TAB PO SCH (10:00)
[2024-11-22] MEDS ORDERED: CHOLECALCIFEROL (VITD3) 1,000UNIT=25mCg TAB PO SCH (10:00)
== END 2024-11-21 16:00 | disposition left against medical advice (07) | DRG 249 ==
LOC: ER 08:23 → OVERFLOW 14:06
DX: K52.9 Noninfective gastroenteritis and colitis, unspecified (principal); D50.9 Iron deficiency anemia, unspecified; E11.9 Type 2 diabetes mellitus without complications; I10 Essential (primary) hypertension; E87.6 Hypokalemia; Z53.29 Procedure and treatment not carried out because of patient's decision for other reasons; N39.0 Urinary tract infection, site not specified; K82.8 Other specified diseases of gallbladder; R74.01 Elevation of levels of liver transaminase levels; Z79.899 Other long term (current) drug therapy
CPT/HCPCS: 36415; 74176; 76705; 80053; 81001; 81025; 82306; 82746; 83010; 83036; 83540; 83550; 83605; 83690; 84425; 84484; 85014; 85018; 85025; 85045; G0378; J2405